=== PATIENT | male | born 1955 | race Hispanic/Latino ===

== ENCOUNTER 2018-05-25 22:30 | Emergency (ER) | payer OTHER ==
[2018-05-25 22:33] VITALS: BMI 29.0
[2018-05-25] MEDS ORDERED: Albuterol-Ipratrop 3 mg / 0.5 (3 ml) UD IH STA (22:57)
--- NOTE | 2018-05-25 23:01 | ED PDOC ---
Arrival/HPI - General Chief Complaint: Shortness Of Breath Time Seen by Provider: 05/25/18 22:36 Historian: Patient - History of Present Illness Narrative History of Present Illness (Text): 05/26/18 00:25 62 y/o tobacco-smoking male with PMH of COPD presents to the ED c/o worsening SOB and productive cough x 4 days. Associated right sided pleuritic thoracic back pain. States it feels similar to the last time he had pneumonia. Took 3 left over 500mg Amoxicillin without relief. Takes his home medications as prescribed. Last cocaine use last week. Does not take ASA at home. Denies fever, chills, nausea, vomiting, abdominal pain, chest pain, numbness, weakness, paresthesias, palpitations, diaphoresis, calf pain, calf swelling, hemoptysis, or any other associated symptoms. Past Medical History - Provider Review Nursing Documentation Reviewed: Yes - Cardiac Hx Cardiac Disorders: No - Pulmonary Hx Asthma: Yes Hx Chronic Obstructive Pulmonary Disease (COPD): Yes Hx Emphysema: Yes - Neurological Hx Neurological Disorder: No - HEENT Hx HEENT Disorder: No - Renal Hx Renal Disorder: No - Endocrine/Metabolic Hx Endocrine Disorders: No - Hematological/Oncological Hx Blood Disorders: No - Integumentary Hx Dermatological Disorder: No - Musculoskeletal/Rheumatological Hx Musculoskeletal Disorders: No - Gastrointestinal Hx Gastrointestinal Disorders: No - Genitourinary/Gynecological Hx Genitourinary Disorders: No - Psychiatric Hx Psychophysiologic Disorder: No Hx Substance Use: Yes (cocaine use last week per patient) - Surgical History Hx Appendectomy: Yes - Anesthesia Hx Anesthesia: Yes Hx Anesthesia Reactions: No Hx Malignant Hyperthermia: No Family/Social History - Physician Review Nursing Documentation Reviewed: Yes Family/Social History: No Known Family HX Smoking Status: Heavy Smoker > 10 Cigarettes Daily Hx Alcohol Use: Yes Hx Substance Use: Yes (cocaine use last week per patient) Allergies/Home Meds Allergies/Adverse Reactions: Allergies No Known Allergies Allergy (Verified 05/26/18 11:53) Home Medications: Home Meds Medication Instructions Recorded Confirmed Albuterol Sulfate [Ventolin Hfa] 1 inh NEB PRN PRN 05/25/18 05/25/18 Albuterol/Ipratropium [Duoneb 3 1 inh NEB Q4H 05/25/18 05/25/18 mg/0.5 mg (3 ml) UD] Mometasone/Formoterol [Dulera 200 1 inh NEB PRN PRN 05/25/18 05/25/18 Mcg/5 Mcg Inhaler] Montelukast [Singulair] 10 mg PO DAILY 05/25/18 05/25/18 Prednisone [Deltasone] 20 mg PO DAILY 05/25/18 05/25/18 Tiotropium [Spiriva] 1 inh NEB DAILY 05/25/18 05/25/18 Review of Systems - Review of Systems Constitutional: Normal. absent: Fevers Eyes: Normal ENT: Normal Respiratory: SOB, Cough Cardiovascular: Normal. absent: Chest Pain, Palpitations, Syncope Gastrointestinal: Normal. absent: Abdominal Pain, Stool Changes, Nausea, Vomiting, Appetite Changes Genitourinary Male: Normal. absent: Dysuria, Frequency Musculoskeletal: Back Pain. absent: Neck Pain Skin: Normal. absent: Rash Neurological: Normal. absent: Headache, Dizziness Physical Exam Vital Signs Reviewed: Yes Vital Signs Temp Pulse Resp BP Pulse Ox 05/25/18 22:50 98.1 F 82 18 141/89 98 Temperature: Afebrile Blood Pressure: Normal Pulse: Regular Respiratory Rate: Normal Appearance: Positive for: Well-Appearing, Non-Toxic, Comfortable Pain Distress: None Mental Status: Positive for: Alert and Oriented X 3 - Systems Exam Head: Present: Atraumatic, Normocephalic Pupils: Present: PERRL Extroacular Muscles: Present: EOMI Conjunctiva: Present: Normal Ears: Present: Normal, NORMAL TM, Normal Canal Mouth: Present: Moist Mucous Membranes Pharnyx: Present: Normal. No: ERYTHEMA, EXUDATE, TONSILS ENLARGED Nose (External): Present: Atraumatic Nose (Internal): Present: Normal Inspection. No: Rhinorrhea, Epistaxis Neck: Present: Normal Range of Motion. No: Meningeal Signs, MIDLINE TENDERNESS, Paraspinal Tenderness, Lymphadenopathy Respiratory/Chest: Present: Wheezes (intermittent, expiratory, diffuse bilaterally), Decreased Breath Sounds (bilaterally). No: Respiratory Distress, Accessory Muscle Use Cardiovascular: Present: Regular Rate and Rhythm, Normal S1, S2, Peripheal Pulses Present Abdomen: Present: Normal Bowel Sounds. No: Tenderness, Distention, Peritoneal Signs, Rebound, Guarding Back: Present: Normal Inspection. No: CVA Tenderness, Midline Tenderness, Paraspinal Tenderness Upper Extremity: Present: Normal Inspection, Normal ROM, NORMAL PULSES, Neurovascularly Intact, Capillary Refill < 2s. No: Cyanosis, Edema, Temperature Abnormalties Lower Extremity: Present: Normal Inspection, NORMAL PULSES, Normal ROM, Neurovascularly Intact, Capillary Refill < 2 s. No: Edema, CALF TENDERNESS, Temperature Abnormalties Neurological: Present: GCS=15, Speech Normal, Motor Func Grossly Intact, Gait Normal Skin: Present: Warm, Dry, Normal Color. No: Rashes Psychiatric: Present: Alert, Oriented x 3, Normal Insight, Normal Concentration, Normal Affect, Normal Mood Medical Decision Making ED Course and Treatment: Initial Plan: * CBC, CMP * Coags * Cardiac Iso * Mg, Phos * EKG * CXR * Duoneb * Solumedrol EKG shows no ischemic changes Rate 71; NSR; Normal Intervals; Normal [place]; No STEMI or other signs of ischemia 00:32 Bloodwork reviewed, unremarkable CXR unremarkable as read by me and Dr. Ramirez Troponin 0.05. Will admit for serial troponin and COPD exacerbation. 00:[address] Boyce and medical radiation therapist who accepted patient for inpatient observation for serial troponins with diagnosis of COPD exacerbation. Pt updated with change in disposition. Resting comfortably in stretcher with stable vitals at this time. - Lab Interpretations Lab Results: 05/25/18 23:15 05/25/18 23:15 Lab Results 05/26/18 12:15: Troponin I 0.03 D 05/26/18 04:00: Mycoplasma pneumon IgM Negative 05/26/18 04:00: Troponin I 0.04 05/26/18 02:20: Ur L.pneumophila Ag Negative 05/26/18 02:20: Urine Opiates Screen Negative, Urine Methadone Screen Negative, Ur Barbiturates Screen Negative, Ur Phencyclidine Scrn Negative, Ur Amphetamines Screen Negative, U Benzodiazepines Scrn Negative, U Oth Cocaine Metabols Positive H, U Cannabinoids Screen Negative 05/26/18 02:00: Influenza Typ A,B (EIA) Negative for flu a/b 05/25/18 23:15: Procalcitonin < 0.05 L 05/25/18 23:15: Alcohol, Quantitative < 10 05/25/18 23:15: PT 10.2, INR 0.92, APTT 25.4 L 05/25/18 23:15: Sodium 139, Potassium 3.5 L, Chloride 107, Carbon Dioxide 27, Anion Gap 8 L, BUN 15, Creatinine 0.7 L, Est GFR ( Amer) > 60, Est GFR (Non-Af Amer) > 60, Random Glucose 96, Calcium 8.5, Magnesium 1.8, Total Bilirubin 0.2, AST 20, ALT 21, Alkaline Phosphatase 49, Lactate Dehydrogenase 350, Total Creatine Kinase 70, Troponin I 0.05, NT-Pro-B Natriuret Pep 193, Total Protein 5.7 L, Albumin 3.4, Globulin 2.3, Albumin/Globulin Ratio 1.4 05/25/18 23:15: WBC 10.0, RBC 4.35, Hgb 12.5 L, Hct 38.8 L, MCV 89.2, MCH 28.7, MCHC 32.2, RDW 13.9, Plt Count 190, MPV 10.4, Neut % (Auto) 77.0 H, Lymph % (Aut o) 15.5 L, [place] % (Auto) 6.9 H, Eos % (Auto) 0.6 L, Baso % (Auto) 0.0, Lymph # (Auto) 1.5, [place] # (Auto) 0.7 H, Eos # (Auto) 0.1, Baso # (Auto) 0.00, Absolute Neuts (auto) 7.66 H 05/25/18 02:20: Urine Color Straw, Urine Appearance Clear, Urine pH 6.5, Ur Specific [place] 1.025, Urine Protein Trace H, Urine Glucose (UA) Negative, Urine Ketones Negative, Urine Blood Negative, Urine Nitrate Negative, Urine Bilirubin Negative, Urine Urobilinogen 0.2, Ur Leukocyte Esterase Negative, Urine RBC 0 - 2, Urine WBC 0 - 2, Ur Epithelial Cells 0 - 2, Amorphous Sediment Few, Urine Bacteria Rare I have reviewed the lab results: Yes - EKG Interpretation EKG Interpretation (Text): Rate 71; NSR; Normal Intervals; Normal [place]; No STEMI or other signs of ischemia Interpreted by ED Physician: Yes Type: 12 lead EKG Disposition/Present on Arrival - Present on Arrival Any Indicators Present on Arrival: No History of DVT/PE: No History of Uncontrolled Diabetes: No Urinary Catheter: No History of Decub. Ulcer: No History Surgical Site Infection Following: None - Disposition Have Diagnosis and Disposition been Completed?: Yes Diagnosis: COPD exacerbation Disposition: HOSPITALIZED Disposition Time: 00:30 Patient Plan: Admission Condition: STABLE Prescriptions: Azithromycin [Z-Alphonse] 250 mg PO DAILY #6 tab
[2018-05-25 23:37] LABS: EOS # 0.1 (0.0-0.7); EOS % 0.6 % (1.5-5.0); HEMOGLOBIN 12.5 g/dL (14.0-18.0); LYMPH # 1.5 (1.2-3.4); LYMPH % 15.5 % (22.0-35.0); MEAN CELL VOLUME 89.2 fl (80.0-105.0); MEAN CORPUSCULAR HEMOGLOBIN 28.7 pg (25.0-35.0); MEAN CORPUSCULAR HGB CONC 32.2 g/dl (31.0-37.0); MEAN PLATELET VOLUME 10.4 fl (7.0-11.0); MONO # 0.7 (0.1-0.6); MONO % 6.9 % (1.0-6.0); RBC 4.35 10^6/uL (3.5-6.1); RED CELL DISTRIBUTION WIDTH 13.9 % (11.5-14.5)
[2018-05-25 23:40] LABS: ALB/GLOB RATIO 1.4 (1.1-1.8); ALBUMIN 3.4 g/dL (3.0-4.8); ALT/SGPT 21 U/L (7-56); AST/SGOT 20 U/L (17-59); BLOOD UREA NITROGEN 15 mg/dL (7-21); CALCIUM 8.5 mg/dL (8.4-10.5); GFR NON-AFRICAN AMERICAN > 60; INR 0.92; PARTIAL THROMBOPLASTIN TIME 25.4 Seconds (26.9-38.3); PROTHROMBIN TIME 10.2 SECONDS (9.4-12.5)
[2018-05-25 23:58] LABS: B-TYPE NATRIURETIC PEPTIDE 193 pg/mL (0-450); TROPONIN I 0.05 ng/mL
--- NOTE | 2018-05-26 00:39 | CP.PCM.HP ---
<GodfreyNicola crespo - Last Filed: 05/26/18 01:57> History of Present Illness - History of Present Illness History of Present Illness: PGY-1 History and Physical for Dr. Boyce Patient is a 62 year old male with past medical history of asthma, emphysema, COPD presenting to ED with worsening sob and productive cough x 3 days. Patient states symptoms began night, no inciting factors noted. He endorses productive cough with green-yellow sputum production each morning as well as some minor right sided chest pain with cough. He also complains of subjective fevers/diaphoresis x 1 day on Saturday. He says he took some left over amoxicillin he had at home with no relief of symptoms. Patient has known history of COPD, is noncompliant with several medications, taking on an "as needed" basis. Of note, he states he recently had pneumonia about 3 months ago and frequently gets upper respiratory infections. No recorded fevers, chills, headaches, dizziness, acute chest pain, palpitations, abdominal pain, decreased appetite, n/v/d/c, dysuria, or changes in stool. 12 pt ROS reviewed and otherwise negative. PMHx: COPD, asthma, emphysema, gallstones PSHx: appendectomy Allergies: NKDA Home Meds: reviewed Family Hx: noncontributory Social Hx: + alcohol (~3 oz fireball whiskey/week), + tobacco (2 cigarettes daily since age 13), + illicit drug use (cocaine, last week). Worked in construction, currently claiming disability. + Exposure to sawdust. PMD: Dr. Wong Present on Admission - Present on Admission Any Indicators Present on Admission: No Review of Systems - Review of Systems All systems: reviewed and no additional remarkable complaints except Review of Systems: as per HPI Past Patient History - Past Social History Smoking Status: Heavy Smoker > 10 Cigarettes Daily - CARDIAC Hx Cardiac Disorders: No - PULMONARY Hx Asthma: Yes Hx Chronic Obstructive Pulmonary Disease (COPD): Yes Hx Emphysema: Yes - NEUROLOGICAL Hx Neurological Disorder: No - HEENT Hx HEENT Problems: No - RENAL Hx Chronic Kidney Disease: No - ENDOCRINE/METABOLIC Hx Endocrine Disorders: No - HEMATOLOGICAL/ONCOLOGICAL Hx Blood Disorders: No - INTEGUMENTARY Hx Dermatological Problems: No - MUSCULOSKELETAL/RHEUMATOLOGICAL Hx Musculoskeletal Disorders: No - GASTROINTESTINAL Hx Gastrointestinal Disorders: No - GENITOURINARY/GYNECOLOGICAL Hx Genitourinary Disorders: No - PSYCHIATRIC Hx Psychophysiologic Disorder: No Hx Substance Use: Yes (cocaine use last week per patient) - SURGICAL HISTORY Hx Appendectomy: Yes - ANESTHESIA Hx Anesthesia: Yes Hx Anesthesia Reactions: No Hx Malignant Hyperthermia: No Meds Allergies/Adverse Reactions: Allergies Allergy/AdvReac Type Severity Reaction Status Date / Time No Known Allergies Allergy Verified 05/25/18 22:32 Physical Exam - Constitutional Appears: Non-toxic, No Acute Distress - Head Exam Head Exam: ATRAUMATIC, NORMAL INSPECTION, NORMOCEPHALIC - Eye Exam Eye Exam: EOMI, Normal appearance, PERRL - ENT Exam ENT Exam: Mucous Membranes Moist, Normal Exam - Neck Exam Neck exam: Positive for: Full Rom, Normal Inspection. Negative for: Lymphadenopathy, Tenderness - Respiratory Exam Respiratory Exam: Decreased Breath Sounds, Prolonged Expiratory Phase, Rhonchi (R>L), Wheezes (R>L). absent: Accessory Muscle Use, Chest Wall Tenderness, Respiratory Distress - Cardiovascular Exam Cardiovascular Exam: REGULAR RHYTHM, +S1, +S2 - GI/Abdominal Exam GI & Abdominal Exam: Distended, Normal Bowel Sounds, Soft, Tenderness (mild TTP RUQ). absent: Firm, Guarding, Rebound, Rigid - Extremities Exam Extremities exam: Positive for: normal capillary refill, normal inspection, pedal pulses present. Negative for: calf tenderness, pedal edema - Back Exam Back exam: NORMAL INSPECTION - Neurological Exam Neurological exam: Alert, CN II-XII Intact, Normal Gait, Oriented x3 - Skin Skin Exam: Dry, Intact, Normal Color, Warm Results - Vital Signs Recent Vital Signs: Last Vital Signs Temp 98.1 F 05/25/18 22:50 Pulse 82 05/25/18 22:50 Resp 18 05/25/18 22:50 BP 141/89 05/25/18 22:50 Pulse Ox 98 05/25/18 22:50 - Labs Result Diagrams: 05/25/18 23:15 05/25/18 23:15 Labs: Laboratory Results - last 24 hr 05/25/18 05/25/18 05/25/18 23:15 23:15 23:15 WBC 10.0 RBC 4.35 Hgb 12.5 L Hct 38.8 L MCV 89.2 MCH 28.7 MCHC 32.2 RDW 13.9 Plt Count 190 MPV 10.4 Neut % (Auto) 77.0 H Lymph % (Auto) 15.5 L [place] % (Auto) 6.9 H Eos % (Auto) 0.6 L Baso % (Auto) 0.0 Lymph # (Auto) 1.5 [place] # (Auto) 0.7 H Eos # (Auto) 0.1 Baso # (Auto) 0.00 Absolute Neuts (auto) 7.66 H PT 10.2 INR 0.92 APTT 25.4 L Sodium 139 Potassium 3.5 L Chloride 107 Carbon Dioxide 27 Anion Gap 8 L BUN 15 Creatinine 0.7 L Est GFR ( Amer) > 60 Est GFR (Non-Af Amer) > 60 Random Glucose 96 Calcium 8.5 Magnesium 1.8 Total Bilirubin 0.2 AST 20 ALT 21 Alkaline Phosphatase 49 Lactate Dehydrogenase 350 Total Creatine Kinase 70 Troponin I 0.05 NT-Pro-B Natriuret Pep 193 Total Protein 5.7 L Albumin 3.4 Globulin 2.3 Albumin/Globulin Ratio 1.4 Assessment & Plan - Assessment and Plan (Free Text) Assessment: 62 year old male with pmhx of asthma, emphysema, COPD, substance abuse presenting to ED with worsening sob, productive cough, subjective fever. Plan: Dyspnea, productive cough 2/2 COPD exacerbation vs pneumonia -pt afebrile, no leukocytosis noted -elevated neutrophils 77, absolute neutrophils 7.66 -BNP wnl -CXR: no acute findings -UA -Blood, urine cx -f/u mycoplasma, legionella, influenza -azithromycin/rocephin for empiric abx -duonebs 3q4 promise -solumedrol 40 mg IVP daily -singulair 10 mg PO HS daily -robitussin prn for cough Atypical chest pain -likely 2/2 cough -trop x 1 negative -repeat trop, EKG in am Hx of COPD, asthma -duonebs 3q4 promise -solumedrol 40 mg IVP daily -singulair 10 mg PO HS daily Substance Abuse -endorses cocaine use within last week -f/u UDS -cessation counseling PPx, Diet, Disposition -DVT ppx: scds, lovenox 40 mg sc daily -Diet: HHD -PT on board Case discussed with Dr. Carli Smith DO, PGY-1 <Richmond Boyce - Last Filed: 05/26/18 05:12> Results - Vital Signs Recent Vital Signs: Last Vital Signs Temp 98.1 F 05/25/18 22:50 Pulse 65 05/26/18 00:31 Resp 18 05/26/18 00:31 BP 135/76 05/26/18 00:31 Pulse Ox 100 05/26/18 00:31 - Labs Result Diagrams: 05/25/18 23:15 05/25/18 23:15 Labs: Laboratory Results - last 24 hr 05/25/18 05/25/18 05/25/18 02:20 23:15 23:15 WBC 10.0 RBC 4.35 Hgb 12.5 L Hct 38.8 L MCV 89.2 MCH 28.7 MCHC 32.2 RDW 13.9 Plt Count 190 MPV 10.4 Neut % (Auto) 77.0 H Lymph % (Auto) 15.5 L [place] % (Auto) 6.9 H Eos % (Auto) 0.6 L Baso % (Auto) 0.0 Lymph # (Auto) 1.5 [place] # (Auto) 0.7 H Eos # (Auto) 0.1 Baso # (Auto) 0.00 Absolute Neuts (auto) 7.66 H PT INR APTT Sodium 139 Potassium 3.5 L Chloride 107 Carbon Dioxide 27 Anion Gap 8 L BUN 15 Creatinine 0.7 L Est GFR ( Amer) > 60 Est GFR (Non-Af Amer) > 60 Random Glucose 96 Calcium 8.5 Magnesium 1.8 Total Bilirubin 0.2 AST 20 ALT 21 Alkaline Phosphatase 49 Lactate Dehydrogenase 350 Total Creatine Kinase 70 Troponin I 0.05 NT-Pro-B Natriuret Pep 193 Total Protein 5.7 L Albumin 3.4 Globulin 2.3 Albumin/Globulin Ratio 1.4 Urine Color Straw Urine Appearance Clear Urine pH 6.5 Ur Specific [place] 1.025 Urine Protein Trace H Urine Glucose (UA) Negative Urine Ketones Negative Urine Blood Negative Urine Nitrate Negative Urine Bilirubin Negative Urine Urobilinogen 0.2 Ur Leukocyte Esterase Negative Urine RBC 0 - 2 Urine WBC 0 - 2 Ur Epithelial Cells 0 - 2 Amorphous Sediment Few Urine Bacteria Rare Urine Opiates Screen Urine Methadone Screen Ur Barbiturates Screen Ur Phencyclidine Scrn Ur Amphetamines Screen U Benzodiazepines Scrn U Oth Cocaine Metabols U Cannabinoids Screen Alcohol, Quantitative Influenza Typ A,B (EIA) 05/25/18 05/25/18 05/26/18 23:15 23:15 02:00 WBC RBC Hgb Hct MCV MCH MCHC RDW Plt Count MPV Neut % (Auto) Lymph % (Auto) [place] % (Auto) Eos % (Auto) Baso % (Auto) Lymph # (Auto) [place] # (Auto) Eos # (Auto) Baso # (Auto) Absolute Neuts (auto) PT 10.2 INR 0.92 APTT 25.4 L Sodium Potassium Chloride Carbon Dioxide Anion Gap BUN Creatinine Est GFR ( Amer) Est GFR (Non-Af Amer) Random Glucose Calcium Magnesium Total Bilirubin AST ALT Alkaline Phosphatase Lactate Dehydrogenase Total Creatine Kinase Troponin I NT-Pro-B Natriuret Pep Total Protein Albumin Globulin Albumin/Globulin Ratio Urine Color Urine Appearance Urine pH Ur Specific [place] Urine Protein Urine Glucose (UA) Urine Ketones Urine Blood Urine Nitrate Urine Bilirubin Urine Urobilinogen Ur Leukocyte Esterase Urine RBC Urine WBC Ur Epithelial Cells Amorphous Sediment Urine Bacteria Urine Opiates Screen Urine Methadone Screen Ur Barbiturates Screen Ur Phencyclidine Scrn Ur Amphetamines Screen U Benzodiazepines Scrn U Oth Cocaine Metabols U Cannabinoids Screen Alcohol, Quantitative < 10 Influenza Typ A,B (EIA) Negative for flu a/b 05/26/18 05/26/18 02:20 04:00 WBC RBC Hgb Hct MCV MCH MCHC RDW Plt Count MPV Neut % (Auto) Lymph % (Auto) [place] % (Auto) Eos % (Auto) Baso % (Auto) Lymph # (Auto) [place] # (Auto) Eos # (Auto) Baso # (Auto) Absolute Neuts (auto) PT INR APTT Sodium Potassium Chloride Carbon Dioxide Anion Gap BUN Creatinine Est GFR ( Amer) Est GFR (Non-Af Amer) Random Glucose Calcium Magnesium Total Bilirubin AST ALT Alkaline Phosphatase Lactate Dehydrogenase Total Creatine Kinase Troponin I 0.04 NT-Pro-B Natriuret Pep Total Protein Albumin Globulin Albumin/Globulin Ratio Urine Color Urine Appearance Urine pH Ur Specific [place] Urine Protein Urine Glucose (UA) Urine Ketones Urine Blood Urine Nitrate Urine Bilirubin Urine Urobilinogen Ur Leukocyte Esterase Urine RBC Urine WBC Ur Epithelial Cells Amorphous Sediment Urine Bacteria Urine Opiates Screen Negative Urine Methadone Screen Negative Ur Barbiturates Screen Negative Ur Phencyclidine Scrn Negative Ur Amphetamines Screen Negative U Benzodiazepines Scrn Negative U Oth Cocaine Metabols Positive H U Cannabinoids Screen Negative Alcohol, Quantitative Influenza Typ A,B (EIA) Attending/Attestation - Attestation I have personally seen and examined this patient.: Yes I have fully participated in the care of the patient.: Yes I have reviewed all pertinent clinical information: Yes
[2018-05-26] MEDS ORDERED: guaiFENesin 200 mg/10 ml Syrup UD PO PRN (01:29)
[2018-05-26] MEDS ORDERED: Potassium Chloride 20 mEq ER Tab PO STA (01:50)
[2018-05-26 02:55] LABS: PH,URINE 6.5 (4.7-8.0); URINE BILIRUBIN NEGATIVE (NEGATIVE); URINE BLOOD NEGATIVE (NEGATIVE); URINE GLUCOSE (UA) NEGATIVE (NEGATIVE); URINE LEUKOCYTE ESTERASE NEGATIVE Leu/uL (NEGATIVE); URINE PROTEIN TRACE mg/dL (<30 mg/dL); URINE UROBILINOGEN 0.2 E.U./dL (<1 E.U./dL)
[2018-05-26 03:01] LABS: URINE APPEARANCE CLEAR (CLEAR); URINE COLOR STRAW (YELLOW)
[2018-05-26 03:09] LABS: BARBITURATES, UR NEGATIVE (NEGATIVE)
[2018-05-26 03:10] LABS: BENZODIAZEPINES, UR NEGATIVE (NEGATIVE); OPIATES, UR NEGATIVE (NEGATIVE); PHENCYCLIDINE, UR NEGATIVE (NEGATIVE)
[2018-05-26 03:11] LABS: URINE AMORPHOUS SEDIMENT FEW /hpf; URINE BACTERIA RARE /hpf; URINE EPITHELIAL CELLS 0 - 2 /hpf (0-5); URINE RBC 0 - 2 /hpf (0-2); URINE WBC 0 - 2 /hpf (0-6)
[2018-05-26] MEDS: Albuterol-Ipratrop 3 mg / 0.5 (3 ml) UD IH SCH ×3 (03:30→11:03)
[2018-05-26] MEDS ORDERED: Albuterol-Ipratrop 3 mg / 0.5 (3 ml) UD IH SCH (04:00)
--- NOTE | 2018-05-26 09:14 | RAD ---
Date of service: 05/25/2018 HISTORY: SOB, cough COMPARISON: No prior. TECHNIQUE: Chest PA and lateral views FINDINGS: LUNGS: No active pulmonary disease. PLEURA: No significant pleural effusion identified. No pneumothorax apparent. CARDIOVASCULAR: No aortic atherosclerotic calcification present. Normal cardiac size. No pulmonary vascular congestion. OSSEOUS STRUCTURES: No significant abnormalities. VISUALIZED UPPER ABDOMEN: Normal. OTHER FINDINGS: None. IMPRESSION: No active disease.
[2018-05-26] MEDS ORDERED: MethylPREDNISolone 40 mg Vial IVP SCH (10:00)
[2018-05-26] MEDS ORDERED: cefTRIAXone 1 gm 1 GM/100 ML BAG IVPB SCH (10:00)
[2018-05-26] MEDS: Enoxaparin 40 mg Syringe SC SCH ×2 (11:03→11:10)
[2018-05-26 11:27] VITALS: TEMP 97.6; O2SAT 97
--- NOTE | 2018-05-26 14:15 | CP.PCM.DIS ---
<Karthik Cheng - Last Filed: 05/26/18 21:47> Provider - Provider Date of Admission: 05/26/18 00:40 Attending physician: Ezio Khan MD Time Spent in preparation of Discharge (in minutes): 45 Diagnosis - Discharge Diagnosis (1) COPD exacerbation Status: Acute Hospital Course - Lab Results Lab Results: Most Recent Lab Values WBC 10.0 10^3/uL (4.5-11.0) 05/25/18 23:15 RBC 4.35 10^6/uL (3.5-6.1) 05/25/18 23:15 Hgb 12.5 g/dL (14.0-18.0) L 05/25/18 23:15 Hct 38.8 % (42.0-52.0) L 05/25/18 23:15 MCV 89.2 fl (80.0-105.0) 05/25/18 23:15 MCH 28.7 pg (25.0-35.0) 05/25/18 23:15 MCHC 32.2 g/dl (31.0-37.0) 05/25/18 23:15 RDW 13.9 % (11.5-14.5) 05/25/18 23:15 Plt Count 190 10^3/uL (120.0-450.0) 05/25/18 23:15 MPV 10.4 fl (7.0-11.0) 05/25/18 23:15 Neut % (Auto) 77.0 % (50.0-68.0) H 05/25/18 23:15 Lymph % (Auto) 15.5 % (22.0-35.0) L 05/25/18 23:15 [place] % (Auto) 6.9 % (1.0-6.0) H 05/25/18 23:15 Eos % (Auto) 0.6 % (1.5-5.0) L 05/25/18 23:15 Baso % (Auto) 0.0 % (0.0-3.0) 05/25/18 23:15 Lymph # (Auto) 1.5 (1.2-3.4) 05/25/18 23:15 [place] # (Auto) 0.7 (0.1-0.6) H 05/25/18 23:15 Eos # (Auto) 0.1 (0.0-0.7) 05/25/18 23:15 Baso # (Auto) 0.00 K/mm3 (0.0-2.0) 05/25/18 23:15 Absolute Neuts (auto) 7.66 (1.4-6.5) H 05/25/18 23:15 PT 10.2 SECONDS (9.4-12.5) 05/25/18 23:15 INR 0.92 05/25/18 23:15 APTT 25.4 Seconds (26.9-38.3) L 05/25/18 23:15 Sodium 139 mmol/L (132-148) 05/25/18 23:15 Potassium 3.5 mmol/L (3.6-5.0) L 05/25/18 23:15 Chloride 107 mmol/L (98-107) 05/25/18 23:15 Carbon Dioxide 27 mmol/L (21-33) 05/25/18 23:15 Anion Gap 8 (10-20) L 05/25/18 23:15 BUN 15 mg/dL (7-21) 05/25/18 23:15 Creatinine 0.7 mg/dl (0.8-1.5) L 05/25/18 23:15 Est GFR ( Amer) > 60 05/25/18 23:15 Est GFR (Non-Af Amer) > 60 05/25/18 23:15 Random Glucose 96 mg/dL (70-110) 05/25/18 23:15 Calcium 8.5 mg/dL (8.4-10.5) 05/25/18 23:15 Magnesium 1.8 mg/dL (1.7-2.2) 05/25/18 23:15 Total Bilirubin 0.2 mg/dL (0.2-1.3) 05/25/18 23:15 AST 20 U/L (17-59) 05/25/18 23:15 ALT 21 U/L (7-56) 05/25/18 23:15 Alkaline Phosphatase 49 U/L (38-126) 05/25/18 23:15 Lactate Dehydrogenase 350 U/L (333-699) 05/25/18 23:15 Total Creatine Kinase 70 U/L (35-230) 05/25/18 23:15 Troponin I 0.03 ng/mL D 05/26/18 12:15 NT-Pro-B Natriuret Pep 193 pg/mL (0-450) 05/25/18 23:15 Total Protein 5.7 g/dL (5.8-8.3) L 05/25/18 23:15 Albumin 3.4 g/dL (3.0-4.8) 05/25/18 23:15 Globulin 2.3 gm/dL 05/25/18 23:15 Albumin/Globulin Ratio 1.4 (1.1-1.8) 05/25/18 23:15 Procalcitonin < 0.05 NG/ML (0.19-0.49) L 05/25/18 23:15 Urine Color Straw (YELLOW) 05/25/18 02:20 Urine Appearance Clear (CLEAR) 05/25/18 02:20 Urine pH 6.5 (4.7-8.0) 05/25/18 02:20 Ur Specific [facility] 1.025 (1.005-1.035) 05/25/18 02:20 Urine Protein Trace mg/dL (<30 mg/dL) H 05/25/18 02:20 Urine Glucose (UA) Negative mg/dL (NEGATIVE) 05/25/18 02:20 Urine Ketones Negative mg/dL (NEGATIVE) 05/25/18 02:20 Urine Blood Negative (NEGATIVE) 05/25/18 02:20 Urine Nitrate Negative (NEGATIVE) 05/25/18 02:20 Urine Bilirubin Negative (NEGATIVE) 05/25/18 02:20 Urine Urobilinogen 0.2 E.U./dL (<1 E.U./dL) 05/25/18 02:20 Ur Leukocyte Esterase Negative Elsa/uL (NEGATIVE) 05/25/18 02:20 Urine RBC 0 - 2 /hpf (0-2) 05/25/18 02:20 Urine WBC 0 - 2 /hpf (0-6) 05/25/18 02:20 Ur Epithelial Cells 0 - 2 /hpf (0-5) 05/25/18 02:20 Amorphous Sediment Few /hpf (NONE) 05/25/18 02:20 Urine Bacteria Rare /hpf (NONE) 05/25/18 02:20 Urine Opiates Screen Negative (NEGATIVE) 05/26/18 02:20 Urine Methadone Screen Negative (NEGATIVE) 05/26/18 02:20 Ur Barbiturates Screen Negative (NEGATIVE) 05/26/18 02:20 Ur Phencyclidine Scrn Negative (NEGATIVE) 05/26/18 02:20 Ur Amphetamines Screen Negative (NEGATIVE) 05/26/18 02:20 U Benzodiazepines Scrn Negative (NEGATIVE) 05/26/18 02:20 U Oth Cocaine Metabols Positive (NEGATIVE) H 05/26/18 02:20 U Cannabinoids Screen Negative (NEGATIVE) 05/26/18 02:20 Alcohol, Quantitative < 10 mg/dL (0-10) 05/25/18 23:15 Influenza Typ A,B (EIA) Negative for flu a/b (NEGATIVE) 05/26/18 02:00 Ur L.pneumophila Ag Negative (NEGATIVE) 05/26/18 02:20 Mycoplasma pneumon IgM Negative (NEGATIVE) 05/26/18 04:00 - Hospital Course Hospital Course: Upon Admission: Patient is a 62 year old male with past medical history of asthma, emphysema, COPD presenting to ED with worsening sob and productive cough x 3 days. Patient states symptoms began night, no inciting factors noted. He endorses productive cough with green-yellow sputum production each morning as well as some minor right sided chest pain with cough. He also complains of subjective fevers/diaphoresis x 1 day on Saturday. He says he took some left over amoxicillin he had at home with no relief of symptoms. Patient has known history of COPD, is noncompliant with several medications, taking on an "as needed" basis. Of note, he states he recently had pneumonia about 3 months ago and frequently gets upper respiratory infections. No recorded fevers, chills, headac hes, dizziness, acute chest pain, palpitations, abdominal pain, decreased appetite, n/v/d/c, dysuria, or changes in stool. 12 pt ROS reviewed and otherwise negative. Hospital Course: Pt was being worked up for COPD exacerbation. Pt in the ED was given 125mg IV steroids and the pt was given duoneb treatments. Pt was given singular over the day and pt states the the pain in his back and his SOB have improved. CXR was donein the ED which showed no acute disease. Pt was also noted to be afebrile with no elevation in WBC count. Pts lungs on exam were clear to ausculation, with no wheezing and no rales or rhonci noted. Pts trops were taken and found to be .05, .04, .04. Pt was informed of the results and the pt states that he is feeling much better and would like to go home. Pt agreed with medical plan for d/c and was informed that he would have to have close follow up with PMD, to which the pt agreed. Pt expressed understanding and agreement with both the d/c plan and the follow up plan. All of the pts questions and concerns were addressed prior to d/c. Discharge Exam - Head Exam Head Exam: ATRAUMATIC, NORMAL INSPECTION, NORMOCEPHALIC - Eye Exam Eye Exam: EOMI, Normal appearance, PERRL - Respiratory Exam Respiratory Exam: Clear to PA & Lateral, NORMAL BREATHING PATTERN, UNREMARKABLE. absent: Accessory Muscle Use, Rales, Rhonchi, Wheezes, Respiratory Distress - Cardiovascular Exam Cardiovascular Exam: RRR, +S1, +S2. absent: Gallop, Rubs - GI/Abdominal Exam GI & Abdominal Exam: Normal Bowel Sounds, Soft, Unremarkable. absent: Distended, Firm, Guarding, Rigid, Tenderness - Extremities Exam Extremities exam: normal capillary refill, normal inspection, pedal pulses present - Back Exam Back exam: NORMAL INSPECTION. absent: CVA tenderness (L), CVA tenderness (R) - Neurological Exam Neurological exam: Alert, Oriented x3 - Psychiatric Exam Psychiatric exam: Normal Affect, Normal Mood - Skin Skin Exam: Dry, Normal Color, Warm Discharge Plan - Discharge Medications Prescriptions: Azithromycin [Z-Alphonse] 250 mg PO DAILY #6 tab - Follow Up Plan Condition: STABLE Disposition: HOSPITALIZED <Ezio Khan - Last Filed: 05/27/18 14:27> Provider - Provider Consults: 05/26/18 14:36 Inpatient [facility]NER Core Measures Referral Routine Comment: COPD EXACERBATION Physician Instructions: Reason For Exam: EVALUATION Transition In Care/Readmission Reduction Routine Comment: Physician Instructions: Reason For Exam: EVALUATION 05/26/18 14:39 Social Work Referral Routine Comment: DISCHARGE PLANNING LIVES ALONE. Physician Instructions: Reason For Exam: EVALUATION Hospital Course - Lab Results Lab Results: Micro Results 05/25/18 22:10 Blood Blood Culture - Preliminary NO GROWTH AFTER 24 HOURS Most Recent Lab Values WBC 10.0 10^3/uL (4.5-11.0) 05/25/18 23:15 RBC 4.35 10^6/uL (3.5-6.1) 05/25/18 23:15 Hgb 12.5 g/dL (14.0-18.0) L 05/25/18 23:15 Hct 38.8 % (42.0-52.0) L 05/25/18 23:15 MCV 89.2 fl (80.0-105.0) 05/25/18 23:15 MCH 28.7 pg (25.0-35.0) 05/25/18 23:15 MCHC 32.2 g/dl (31.0-37.0) 05/25/18 23:15 RDW 13.9 % (11.5-14.5) 05/25/18 23:15 Plt Count 190 10^3/uL (120.0-450.0) 05/25/18 23:15 MPV 10.4 fl (7.0-11.0) 05/25/18 23:15 Neut % (Auto) 77.0 % (50.0-68.0) H 05/25/18 23:15 Lymph % (Auto) 15.5 % (22.0-35.0) L 05/25/18 23:15 [place] % (Auto) 6.9 % (1.0-6.0) H 05/25/18 23:15 Eos % (Auto) 0.6 % (1.5-5.0) L 05/25/18 23:15 Baso % (Auto) 0.0 % (0.0-3.0) 05/25/18 23:15 Lymph # (Auto) 1.5 (1.2-3.4) 05/25/18 23:15 [place] # (Auto) 0.7 (0.1-0.6) H 05/25/18 23:15 Eos # (Auto) 0.1 (0.0-0.7) 05/25/18 23:15 Baso # (Auto) 0.00 K/mm3 (0.0-2.0) 05/25/18 23:15 Absolute Neuts (auto) 7.66 (1.4-6.5) H 05/25/18 23:15 PT 10.2 SECONDS (9.4-12.5) 05/25/18 23:15 INR 0.92 05/25/18 23:15 APTT 25.4 Seconds (26.9-38.3) L 05/25/18 23:15 Sodium 139 mmol/L (132-148) 05/25/18 23:15 Potassium 3.5 mmol/L (3.6-5.0) L 05/25/18 23:15 Chloride 107 mmol/L (98-107) 05/25/18 23:15 Carbon Dioxide 27 mmol/L (21-33) 05/25/18 23:15 Anion Gap 8 (10-20) L 05/25/18 23:15 BUN 15 mg/dL (7-21) 05/25/18 23:15 Creatinine 0.7 mg/dl (0.8-1.5) L 05/25/18 23:15 Est GFR ( Amer) > 60 05/25/18 23:15 Est GFR (Non-Af Amer) > 60 05/25/18 23:15 Random Glucose 96 mg/dL (70-110) 05/25/18 23:15 Calcium 8.5 mg/dL (8.4-10.5) 05/25/18 23:15 Magnesium 1.8 mg/dL (1.7-2.2) 05/25/18 23:15 Total Bilirubin 0.2 mg/dL (0.2-1.3) 05/25/18 23:15 AST 20 U/L (17-59) 05/25/18 23:15 ALT 21 U/L (7-56) 05/25/18 23:15 Alkaline Phosphatase 49 U/L (38-126) 05/25/18 23:15 Lactate Dehydrogenase 350 U/L (333-699) 05/25/18 23:15 Total Creatine Kinase 70 U/L (35-230) 05/25/18 23:15 Troponin I 0.03 ng/mL D 05/26/18 12:15 NT-Pro-B Natriuret Pep 193 pg/mL (0-450) 05/25/18 23:15 Total Protein 5.7 g/dL (5.8-8.3) L 05/25/18 23:15 Albumin 3.4 g/dL (3.0-4.8) 05/25/18 23:15 Globulin 2.3 gm/dL 05/25/18 23:15 Albumin/Globulin Ratio 1.4 (1.1-1.8) 05/25/18 23:15 Procalcitonin < 0.05 NG/ML (0.19-0.49) L 05/25/18 23:15 Urine Color Straw (YELLOW) 05/25/18 02:20 Urine Appearance Clear (CLEAR) 05/25/18 02:20 Urine pH 6.5 (4.7-8.0) 05/25/18 02:20 Ur Specific [facility] 1.025 (1.005-1.035) 05/25/18 02:20 Urine Protein Trace mg/dL (<30 mg/dL) H 05/25/18 02:20 Urine Glucose (UA) Negative mg/dL (NEGATIVE) 05/25/18 02:20 Urine Ketones Negative mg/dL (NEGATIVE) 05/25/18 02:20 Urine Blood Negative (NEGATIVE) 05/25/18 02:20 Urine Nitrate Negative (NEGATIVE) 05/25/18 02:20 Urine Bilirubin Negative (NEGATIVE) 05/25/18 02:20 Urine Urobilinogen 0.2 E.U./dL (<1 E.U./dL) 05/25/18 02:20 Ur Leukocyte Esterase Negative Elsa/uL (NEGATIVE) 05/25/18 02:20 Urine RBC 0 - 2 /hpf (0-2) 05/25/18 02:20 Urine WBC 0 - 2 /hpf (0-6) 05/25/18 02:20 Ur Epithelial Cells 0 - 2 /hpf (0-5) 05/25/18 02:20 Amorphous Sediment Few /hpf (NONE) 05/25/18 02:20 Urine Bacteria Rare /hpf (NONE) 05/25/18 02:20 Urine Opiates Screen Negative (NEGATIVE) 05/26/18 02:20 Urine Methadone Screen Negative (NEGATIVE) 05/26/18 02:20 Ur Barbiturates Screen Negative (NEGATIVE) 05/26/18 02:20 Ur Phencyclidine Scrn Negative (NEGATIVE) 05/26/18 02:20 Ur Amphetamines Screen Negative (NEGATIVE) 05/26/18 02:20 U Benzodiazepines Scrn Negative (NEGATIVE) 05/26/18 02:20 U Oth Cocaine Metabols Positive (NEGATIVE) H 05/26/18 02:20 U Cannabinoids Screen Negative (NEGATIVE) 05/26/18 02:20 Alcohol, Quantitative < 10 mg/dL (0-10) 05/25/18 23:15 Influenza Typ A,B (EIA) Negative for flu a/b (NEGATIVE) 05/26/18 02:00 Ur L.pneumophila Ag Negative (NEGATIVE) 05/26/18 02:20 Mycoplasma pneumon IgM Negative (NEGATIVE) 05/26/18 04:00 Attending/Attestation - Attestation I have personally seen and examined this patient.: Yes I have fully participated in the care of the patient.: Yes I have reviewed all pertinent clinical information, including history, physical exam and plan: Yes Notes (Text): 05/27/18 14:08 Attending note; Patient seen and examined in ER bed 16. Patient is alert, awake and oriented. currenlty denies any chest pain or shortness of breath. denies any fever , chills. Patient is a 62-year-old male with a history of COPD, multiple exacerbation is admitted with nonspecific back pain and wheezing. Started on albuterol, DuoNeb and IV steroids. Started on p.o. Zithromax. Patient clinically improved. EKG showed nonspecific changes; cardiac enzymes 0.05 and 0.03. Patient denies any chest pain. Patient will be discharged home today. Smoking; smoking cessation is strongly advised . Chest x-ray is negative for acute infiltrate. Medication compliance insisted in detail. Patient has nebulizer medication at home. Patient will follow up with PMD Dr. Wong today. 05/27/18 14:27
[2018-05-26 14:22] VITALS: BP 144/92; PULSE 77; RESP 18
[2018-05-26] MEDS ORDERED: Influenza Vaccine 60 mcg/0.5 mL SYR (4YR UP) IM ONE (14:36)
[2018-05-26] MEDS ORDERED: Pneumococcal 23-Valent Vaccine IM ONE (14:36)
--- NOTE | 2018-05-26 17:40 | CARD ---
APPROVED REPORT Date of service: 05/25/2018 EKG Measurement Heart [id number] 130P [id number] <Conclusion> Normal sinus rhythm Normal ECG
== END 2018-05-26 14:36 | disposition home or self-care (01) ==
LOC: ED 22:30 → ERH 05-26 00:40 → UNDOADMOB 05-26 00:40 → ERH 05-26 11:46 → ED 05-26 14:36
DX: J44.1 Chronic obstructive pulmonary disease with (acute) exacerbation (principal); F17.210 Nicotine dependence, cigarettes, uncomplicated; F19.10 Other psychoactive substance abuse, uncomplicated
CPT/HCPCS: 71046; 80053; 80320; 80324; 80345; 80346; 80349; 80353; 80358; 80361; 81001; 82550; 83615; 83735; 83880; 83992; 84145; 84484; 85025; 85610; 85730; 86738; 87040; 87086; 87449; 87804; 93005; 96365; 96375; 96376; 99285; J0696; J2920; J2930